=== PATIENT | male | born 1975 | race African-American/Black ===

== ENCOUNTER 2017-04-22 12:06 | Emergency (ER) | payer OTHER | END 2017-04-22 14:28 | disposition home or self-care (01) | LOC: CFTX 12:06 → CED 12:06 → CFTX 14:26 | DX: L02.412 Cutaneous abscess of left axilla (principal); L02.411 Cutaneous abscess of right axilla; L73.2 Hidradenitis suppurativa | CPT/HCPCS: 10060; 10061; 87070; 87077; 87186; 87205; 99283 ==